=== PATIENT | male | born 1975 | race African-American/Black ===

== ENCOUNTER 2017-03-04 13:34 | Inpatient (IN) ==
--- NOTE | 2017-03-04 14:57 | Emergency Department Note ---
Arrival - Arrival Chief Complaint: Nausea/Vomiting/Diarrhea Stated Complaint: bleeding,abd pain,n/v,weak ED Nursing Triage Note: C/O having nausea and vomiting x 2 days., + diarrhea x 2 days, denies having increase temp ., + chills., generalized abd. cramping Mode of Arrival: Ambulatory Limitations: No Limitations Source: Patient, RN Notes Reviewed Time Seen by Provider: 03/04/17 14:30 - History of Present Illness HPI Narrative: - History of Present Illness 41-year-old black male presents to ED with: MD Complaint: abdominal pain, nausea, vomiting, diarrhea, stools black, vomitus is black Onset (ago): 2 days Fever: no PCP: none PMHx: HTN, patient is noncompliant with medicine, states he does not have any more refills, blood pressure in triage was 141/110 Allergies/Adverse Reactions: Allergies Allergy/AdvReac Type Severity Reaction Status Date / Time No Known Allergies Allergy Verified 03/04/17 13:52 Home Medications: Home Medications Medication Instructions Recorded Confirmed Type No Known Home Medications [No 03/04/17 03/04/17 History Known Home Medications] Review of System - Review of System 12 point system: reviewed and no additional remarkable complaints except as stated - Review of System Constitutional: Present: weakness. Absent: fever Gastrointestinal: Present: as per HPI, abdominal pain, nausea, vomiting, diarrhea, hematemesis, melena Medical,Surgical,& Family Hx - Medical History Cardio: History of: Hypertension (non-compliant with medications) - Social History Smoking Status: Smoker, status unknown Frequency of Alcohol Use: Occasionally Type of Drug Use: None Exam Physical Examination: - General General appearance: alert, in no apparent distress - HEENT Present: atraumatic, normocephalic, normal inspection, PERRL, EOMI, mucous membranes moist - Neck Neck exam: Present: normal inspection, full ROM - Respiratory Respiratory exam: Present: normal lung sounds bilaterally - Cardiovascular Cardiovascular exam: Present: regular rate, normal rhythm, normal heart sounds - Abdominal Exam Abdominal exam: Present: soft, tenderness: Yes, generalized and right lower quadrant, mild, normal bowel sounds. Absent: distention, guarding, trauma, psoas sign, heel tap sign, Caal's sign, mass - Rectal Exam Rectal exam: Present: Dark black stool present, Hemoccult positive - Neurological Exam Neurological exam: Present: alert, oriented X3, no neuorosensory deficits - Psychiatric Psychiatric exam: Present: normal affect, normal mood - Skin Skin exam: Present: warm, dry, intact Vital Signs: Vital Signs Temperature 98.1 F 03/04/17 17:32 Pulse Rate 89 03/04/17 17:32 Respiratory Rate 18 03/04/17 17:32 Blood Pressure 144/83 03/04/17 17:32 O2 Sat by Pulse Oximetry 100 03/04/17 17:32 Course - Consultations Time: 16:00 (Hospitalist service notified of pt presence and status. ) Time: 16:10 (Hospitalist service here to evaluate patient.) Procedures - Stool Hemoccult Procedural Steps Taken: stool placed in appropriate test area, developer placed on stool and control areas, controls appropriately positive and negative Hemoccult result: positive - Smoking Cessation Time Spent Discussing Smoking Cessation w/Patient (Minutes): 00:05 Patient Acknowledges Need for Cessation: Yes Results - Labs CBC & BMP: 03/04/17 15:20 03/04/17 14:53 Lab Results: I have reviewed the patients labs Labs: Laboratory Tests 03/04/17 14:53 INR 1.1 PT Patient/Control Mix 11.6 Laboratory Tests 03/04/17 Unknown Urine Color Yellow Urine Appearance Clear Urine pH 6.0 Ur Specific [place] 1.021 Urine Protein Negative Urine Glucose (UA) Negative Urine Ketones Negative Urine Blood Negative Urine Nitrate Negative Urine Bilirubin Negative Urine Urobilinogen < 2.0 H Urine Leukocytes Negative Urine WBC 2 Ur Squamous Epith Cells Occasional Ur Culture Indicated? Not indicated - Diagnostic Findings Procedure: Abdominal x-ray: report reviewed by me (Negative bowel gas pattern) Disposition Clinical Impression: Gastroenteritis, GI bleed, Renal insufficiency Case discussed with: patient Disposition: Still a Patient Time of Disposition: 16:15
[2017-03-04] MEDS ORDERED: SODIUM CHLORIDE 0.9% 1,000 ML IV STA (14:59)
[2017-03-04] MEDS ORDERED: ONDANSETRON 4 MG/2 ML VIAL IV STA (14:59)
[2017-03-04] MEDS ORDERED: PANTOPRAZOLE 40 MG VIAL IV STA (15:01)
[2017-03-04] MEDS ORDERED: PANTOPRAZOLE 40 MG VIAL IV ONE (15:12)
[2017-03-04] MEDS ORDERED: ONDANSETRON 4 MG/2 ML VIAL ONE (15:12)
--- NOTE | 2017-03-04 15:20 | EKG Report ---
Stationary ECG Study [facility] Test Date: 03/04/2017 3:17:38 PM Pat Name: EDINSON SQUIRES Department: Room: Gender: M Water Proofer: JESSE : 1975 Requested by: Rebeka Santana Order Number: [id number] Reading MD: JULIANNE GARBER Intervals [place] Rate: 80 P: 65 NC: 141 QRS: 56 QRSD: 90 T: -71 QT: 393 QTc: 428 Interpretive Statements SINUS RHYTHM MODERATE T-WAVE ABNORMALITY, CONSIDER INFEROLATERAL ISCHEMIA Electronically Signed On 03-06-17 07:10:03 CDT by JULIANNE GARBER [email or web address]
[2017-03-04 15:25] LABS: INR 1.1; PT Patient Result 11.6 SECS
[2017-03-04 15:26] LABS: Basophils # 0.1 10*3/uL (0.0-0.2); Basophils % 0.7 % (0.0-0.8); Eosinophils # 0.1 10*3/uL (0.0-0.87); Eosinophils % 0.5 % (0.00-10.9); Hematocrit 40.7 VOL% (42.0-52.0); Hemoglobin 13.9 GM/DL (14.0-18.0); Immature Granulocytes % 0.5 %; Immature Granulocytes Absolute 0.07 #; Lymphocytes # 3.5 10*3/uL (1.4-4.0); Mean Corpuscular HGB Conc 34.2 GM/DL (32-36); Mean Corpuscular Hemoglobin 28 PG (27-34); Mean Corpuscular Volume 82.1 FL (87-102); Mean Platelet Volume 10.9 FL (9.6-12.0); Monocytes # 1.4 10*3/uL (0.11-0.8); Monocytes % 10.6 % (1.7-12.7); NRBC # 0.02 10*3/uL; Neutrophils # 7.9 10*3/uL (1.4-7.4); Neutrophils % 60.7 % (38.7-73.9); Platelet Count 106 T/CUMM (130-400); Red Blood Count 4.96 MC/CUMM (3.8-5.5); White Blood Count 12.9 T/CUMM (4-12)
[2017-03-04 15:33] LABS: Albumin 4.4 G/DL (3.4-5.0); Bilirubin,Total 1.3 MG/DL (0.2-1.0); Calcium 9.7 MG/DL (8.5-10.1); Osmolality,Calculated 274.2 MOS/KG (273-304); Potassium 3.7 MMOL/L (3.5-5.1); Total Protein 7.9 G/DL (6.4-8.3)
--- NOTE | 2017-03-04 15:45 | XRay Report ---
XR abdomen 2V Indication: Nausea, vomiting and diarrhea. Abdomen 3 views: No small bowel dilatation. Normal amount of stool and gas projects over the colon, without dilatation. No evidence of free air. No abnormal calcifications or masses. Impression: Negative bowel gas pattern. PROCEDURE INTERPRETED AT [facility] DEPARTMENT OF RADIOLOGY Final Report Signed by: Abdulkadir Ambriz M.D.
[2017-03-04] MEDS ORDERED: hydrALAZINE 20 MG/1 ML VIAL IV STA (16:14)
[2017-03-04] MEDS ORDERED: hydrALAZINE 20 MG/1 ML VIAL ONE (16:18)
[2017-03-04] MEDS ORDERED: diphenhydrAMINE CAP 25 MG CAPSULE PO PRN (16:37)
[2017-03-04] MEDS ORDERED: ACETAMINOPHEN 325 MG TABLET PO PRN ×2 (16:37)
[2017-03-04] MEDS ORDERED: guaiFENesin/DM ER 600-30 MG TABLET PO PRN (16:37)
[2017-03-04] MEDS ORDERED: NICOTINE 21 MG/24 HR PATCH TRANSDERM PRN (16:37)
[2017-03-04] MEDS ORDERED: PROMETHAZINE 25 MG/1 ML VIAL IM PRN (16:37)
[2017-03-04] MEDS ORDERED: MORPHINE 2 MG/1 ML SYRINGE IV PRN (16:37)
[2017-03-04] MEDS ORDERED: ONDANSETRON 4 MG/2 ML VIAL IV PRN (16:37)
--- NOTE | 2017-03-04 16:54 | Hospitalist History & Physical ---
Assessment and Plan - Time spent with patient Time spent with patient: Greater than 30 minutes (1) GI bleed Status: Acute Assessment and plan: Mr. Hamilton is a very pleasant 41-year-old -Malaysian male with history of noncompliance with his medicines for hypertension and hyperlipidemia admitted by the hospitalist service with GI bleeding and hypertensive urgency. Patient also has an abnormal EKG with T-wave inversion and possible anterolateral and inferior ischemia. His troponins are pending at this time. Dr. Lerner has seen and examined patient and further recommendations to follow. GI bleed--patient has a 2 day history of black tarry stools and vomit. Patient' s H&H is stable at this time. He is anemic but not profoundly. Will consult Dr. Riggs from GI for evaluation, start Protonix twice daily, IV fluids, serial H&H's, and keep him n.p.o. due to his nausea and vomiting for now. Hypertensive urgency--patient used to take lisinopril a while ago. We will go ahead and start some Norvasc 5 mg p.o. daily due to his hypotension and tachycardia. Have also written for some Apresoline IV as needed. Hyperlipidemia--patient states he was diagnosed with high cholesterol along time ago and never took his medicine. He does have xanthelasma on bilateral eyelids so we will check a lipid profile. Renal insufficiency/dehydration--patient has elevated BUN and creatinine and this is most likely due to dehydration from his vomiting and diarrhea. Patient is being rehydrated and will recheck labs in the morning. Abnormal EKG--patient's EKG has T-wave abnormality with possible anterolateral and inferior ischemia. His troponins are pending. Patient does not complain of chest pain or shortness of breath. Patient is a high risk due to his noncompliance with hypertensive and hyperlipidemia medications. He is also a heavy smoker as well. Consult cardiology for evaluation. Will also get serial EKGs and troponins. Anemia--this is not profound. Will get serial H&H's to check for further bleeding. Leukocytosis--this is most likely an effect of his current illness. We will repeat some labs in the morning. No signs of any infection so no need for antibiotics at this time. Current Visit: Yes (2) Hypertensive urgency Status: Acute Current Visit: Yes (3) Abnormal EKG Status: Acute Current Visit: Yes (4) Renal insufficiency Status: Acute Current Visit: Yes (5) Dehydration Status: Acute Current Visit: Yes (6) Anemia Status: Acute Current Visit: Yes (7) Leukocytosis Status: Acute Current Visit: Yes History of Present Illness Chief complaint: Nausea, vomiting, diarrhea History of present illness: Mr. Hamilton is a 41 year old -Malaysian male with history of hypertension and hyperlipidemia noncompliant with his medicines presenting to the ED with a 2 day history of nausea, vomiting, and diarrhea. Patient states he ate a hamburger from [facility] on and he has been nauseated and had vomiting and diarrhea since then. Patient states his vomit and diarrhea are both black and tarry. The last time he vomited or had diarrhea was this morning. Patient denies headache or dizziness, chest pain or shortness of breath, constipation, or lower extremity edema. But he does have some right lower quadrant abdominal pain to palpation. Patient states he has been diagnosed with high cholesterol in the past and hypertension but he ran out of medicines approximately 2 or 3 months ago and he has not gotten them refilled. Patient states he is new to [place] has not found a family physician yet. He smokes 3-4 blackened hands a day and he occasionally smokes and drinks alcohol. He is afebrile, tachycardic at 106, and hypertensive at 177/114. CBC shows a mildly elevated white count of 12.9 with a stable H&H of 13.9/40.7, platelets are low at 106. Patient's creatinine is 1.4 and his total bilirubin is 1.3. His EKG is showing some moderate T-wave abnormality with some anterolateral and inferior ischemia. Troponins are pending. After discussion with Lizbeth Mcnamara NP in the ED and Dr. Lerner the hospitalist, it was agreed patient would be admitted for further evaluation and treatment Home Medications Medication Instructions Recorded Confirmed Type No Known Home Medications [No 03/04/17 03/04/17 History Known Home Medications] Allergies Allergy/AdvReac Type Severity Reaction Status Date / Time No Known Allergies Allergy Verified 03/04/17 13:52 Medical,Surgical,& Family Hx - Medical History Cardio: History of: Hypertension (non-compliant with medications) Endocrine: History of: Dyslipidemia - Surgical History Cardiac Surgeries: Patient Denies: Cardiac Catheterization Abdominal Surgeries: Patient denies: Colonoscopy Orthopedic Surgeries: Patient denies;: Orthopedic Surgery - Family History Family History: Reports;: Family Heart Disease - Social History Smoking Status: Heavy tobacco smoker Have you smoked in the last 12 months: Yes Frequency of Alcohol Use: Occasionally Type of Drug Use: Marijuana Marital Status: Single Lives With:: Alone Functional capacity: independent ambulation Review of systems: A complete 10 system review of systems was obtained and pertinent positives and negatives per HPI Exam - Constitutional Vitals: Period Temp Pulse Resp BP Sys/Boss Pulse Ox Last 24 Hr 98.8 F-98.8 F 87-106 20-20 141-177/110-114 100 Exam: Constitutional System: No distress. No tremulousness. Head: Normocephalic, atraumatic. Ears, Nose and Throat System: No evidence of Otitis or Mastoiditis. No epistaxis or discharge Eyes System: Pupils equal, round, and reactive. Extraocular muscles intact. Xanthelasma to bilateral eyelids Neck: Supple, without adenopathy, No jugular venous distention. No thyromegaly, neck mass, or prior surgery apparent. Respiratory System: Chest clear to auscultation. Cardiovascular System: Heart with tachycardic rate and rhythm. No murmur. GI System: Abdomen soft, tender to right lower quadrant. Normo active bowel sounds present. Musculoskeletal System: limbs with no pedal edema. Full distal pulses. Neurological System: No discernable sensory deficit. No aphasia Psychiatric System: Conversation is rational Results - Labs CBC & BMP: 03/04/17 15:20 03/04/17 14:53 Lab Results: I have reviewed the past 24 hour labs - EKG EKG shows: tachycardia - Impressions Moderate T-wave abnormality with possible anterolateral and inferior ischemia - Diagnostic Findings Procedure: KUB x-ray: report reviewed by me (Negative bowel gas pattern)
[2017-03-04] MEDS ORDERED: hydrALAZINE 20 MG/1 ML VIAL IV PRN (17:31)
[2017-03-04 17:35] LABS: Apearance,Urine CLEAR (Clear); Bilirubin,Urine Negative (Negative); Blood, Urine Negative (Negative); Glucose,Urine (UA) Negative (Negative); Ketones,Urine Negative (Negative); Nitrite,Urine Negative (Negative); Protein,Urine Negative; Squamous Epithelial Cell,Urine Occasional /HPF (0-10); Urine Color Yellow (Yellow); Urine Specific Gravity 1.021 (1.001-1.035); Urine Urobilinogen < 2.0 EU/DL (0.2-1.0); WBC,Urine 2 /HPF (0-6)
[2017-03-04 17:47] LABS: Troponin I Only 0.033 NG/ML (0.00-0.045)
[2017-03-04] MEDS: SODIUM CHLORIDE 0.9% 1,000 ML IV SCH (18:23)
[2017-03-04] MEDS: amLODIPine 5 MG TABLET PO SCH (18:24)
[2017-03-04] MEDS: PANTOPRAZOLE 40 MG VIAL IV SCH (21:06)
[2017-03-05 01:44] LABS: Hematocrit 34.7 VOL% (42.0-52.0); Hemoglobin 11.6 GM/DL (14.0-18.0)
[2017-03-05 01:45] LABS: Basophils % 0.4 % (0.0-0.8); Eosinophils # 0.1 10*3/uL (0.0-0.87); Eosinophils % 0.5 % (0.00-10.9); Hematocrit 35.1 VOL% (42.0-52.0); Hemoglobin 11.7 GM/DL (14.0-18.0); Immature Granulocytes % 0.3 %; Immature Granulocytes Absolute 0.03 #; Lymphocytes # 3.4 10*3/uL (1.4-4.0); Lymphocytes % 33.4 % (21.2-54.2); Mean Corpuscular HGB Conc 33.3 GM/DL (32-36); Mean Corpuscular Hemoglobin 28 PG (27-34); Mean Corpuscular Volume 83.4 FL (87-102); Mean Platelet Volume 9.7 FL (9.6-12.0); Monocytes # 1.2 10*3/uL (0.11-0.8); Monocytes % 11.7 % (1.7-12.7); Neutrophils # 5.4 10*3/uL (1.4-7.4); Neutrophils % 53.7 % (38.7-73.9); Platelet Count 251 T/CUMM (130-400); Red Blood Count 4.21 MC/CUMM (3.8-5.5); Red Cell Distribution Width 12.9 % (9.3-17.3)
[2017-03-05] MEDS: SODIUM CHLORIDE 0.9% 1,000 ML IV SCH ×3 (02:07→17:02)
[2017-03-05 02:12] LABS: Risk Ratio 4.38
[2017-03-05 02:15] LABS: Troponin I Only 0.041 NG/ML (0.00-0.045)
[2017-03-05 02:18] LABS: Albumin 3.5 G/DL (3.4-5.0); Bilirubin,Total 1.8 MG/DL (0.2-1.0); Calcium 8.4 MG/DL (8.5-10.1); Osmolality,Calculated 276.7 MOS/KG (273-304); Potassium 4.4 MMOL/L (3.5-5.1); Thyroid Stimulating Hormone 1.09 uIU/ml (0.358-3.74); Total Protein 6.2 G/DL (6.4-8.3)
--- NOTE | 2017-03-05 07:54 | Gastrointestinal Progress Note ---
Gastroenterology - PN: Subj Interval history: Who has a history of hypertension hyperlipidemia who presents with upper GI bleeding and noncompliance with his home medications. 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 Patient had melena yesterday and it was this that alerted him that he needed to come to the emergency room for evaluation. His hematocrit is dropped from 40.7 to 35.1% over the last several hours. His white blood cell count initially was 12.9 and this is also come down to 10.0. When he did not tell the hospitalist was that this man has had severe reflux that he has been borderline controlling with daily Zantac for the last 5 years. He also has some lower esophageal dysphagia with solids hanging with some frequency. He has had some fevers and chills earlier in his course but these have regressed. He has never had upper endoscopy. There is no family history of colon cancer polyps that he knows of. He is not really having any abdominal pain per se. He does not tend have diarrhea or constipation at baseline. Exam (Progress Note) - Constitutional Vitals: Period Temp Pulse Resp BP Sys/Boss Pulse Ox Last 24 Hr 97.9 F-98.8 F 86-106 16-20 123-177/60-114 94-100 Results - Labs CBC & BMP: 03/05/17 01:30 03/05/17 01:30
--- NOTE | 2017-03-05 08:03 | Gastrointestinal Consult Note ---
Assessment and Plan (1) Pharyngoesophageal dysphagia Status: Acute Assessment and plan: This patient has had problems with reflux for the last 5 years and has developed some dysphasia at the base of his esophagus. There is likely a ring here. There may have been a Katie-Rodriguez tear in association with his recent nausea and vomiting. We will plan on doing upper endoscopy along with dilation as appropriate. Current Visit: Yes (2) Coffee ground emesis Status: Acute Assessment and plan: This appears to have stopped at this point. Patient has dropped his hematocrit from 40% down to 35%. Continue evaluation off of anticoagulation until upper endoscopy tomorrow. This will occur sometime between 7:00 and 9:00 in the morning. The patient has been advised of potential risks associated with endoscopy which include but are not limited to: Bleeding, infection, perforation , cardiac and pulmonary compromise. Current Visit: Yes (3) Gastrointestinal hemorrhage with melena Status: Acute Assessment and plan: I suspect that this may be due to the nausea and vomiting the patient had earlier with his food poisoning inducing either Katie-Rodriguez or worsening his underlying reflux symptoms, resulting in erosive esophagitis that later bled. 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 coli 0157:H7). Current Visit: Yes (4) Chronic GERD Status: Acute Assessment and plan: Patient states that he has had reflux for over 5 years and that sometimes this is quite severe and requires daily treatment. He has used nothing besides over- the-counter Zantac for this, and I believe we can find something a great deal stronger to suppress his symptoms--he is already feeling a great deal better. Current Visit: Yes (5) Food poisoning Status: Acute Assessment and plan: Symptom onset occurred after eating a hamburger at [employer] and the patient believes he may have developed food poisoning as a result. Is certainly possible given the time course. I believe the acid reflux and possibly esophagitis and the patient has was exacerbated by the vomiting resulting in either Katie-Rodriguez tear or worsening esophagitis with upper GI bleeding. Stool studies are pending, but due to lack of oral intake the patient has not had any bowel movements yet. Current Visit: Yes History of Present Illness Chief complaint: Hematemesis, melena, 5% drop in hematocrit, dysphagia/GERD History of present illness: Mr. Hamilton is a 41 year old male who has a history of hypertension hyperlipidemia who presents with upper GI bleeding and noncompliance with his home medications. 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 Patient had melena yesterday and it was this that alerted him that he needed to come to the emergency room for evaluation. His hematocrit is dropped from 40.7 to 35.1% over the last several hours. His white blood cell count initially was 12.9 and this is also come down to 10.0. When he did not tell the hospitalist was that this man has had severe reflux that he has been borderline controlling with daily Zantac for the last 5 years. He also has some lower esophageal dysphagia with solids hanging with some frequency. He has had some fevers and chills earlier in his course but these have regressed. He has never had upper endoscopy. There is no family history of colon cancer polyps that he knows of. He is not really having any abdominal pain per se. He does not tend have diarrhea or constipation at baseline. Home Medications Medication Instructions Recorded Confirmed Type No Known Home Medications [No 03/04/17 03/04/17 History Known Home Medications] Allergies Allergy/AdvReac Type Severity Reaction Status Date / Time No Known Allergies Allergy Verified 03/04/17 13:52 Medical,Surgical,& Family Hx - Medical History Cardio: History of: Hypertension (non-compliant with medications) Endocrine: History of: Dyslipidemia - Surgical History Cardiac Surgeries: Patient Denies: Cardiac Catheterization Abdominal Surgeries: Patient denies: Colonoscopy Orthopedic Surgeries: Patient denies;: Orthopedic Surgery - Family History Family History: Reports;: Family Heart Disease - Social History Smoking Status: Smoker, status unknown Frequency of Alcohol Use: Occasionally Type of Drug Use: None Review of systems: Constitutional: Admits to recent fever, chills, nausea, and vomiting Eyes: Denies dry eyes, and scleral icterus HENT: Denies headaches Cardiovascular: He does have some acute chest pain but no claudication Respiratory: Denies shortness of breath, wheezing, and difficulty breathing, denies cough Gastrointestinal: As noted in the HPI Genitourinary: Denies dysuria and hematuria Neurologic: Denies vision loss, and loss of sensation Musculoskeletal: Denies joint swelling, joint stiffness, and muscular weakness Psychiatric: Denies depression and mesfin symptoms Heme-Lymph: Denies easy bruising, lymph node enlargement or tenderness, night sweats, excessive bleeding Allergies-immunologic: Denies pruritus and rhinorrhea Exam - Constitutional Vitals: Period Temp Pulse Resp BP Sys/Boss Pulse Ox Last 24 Hr 97.9 F-98.8 F 86-106 16-20 123-177/60-114 94-100 General appearance: no acute distress - Head Head exam: Present: normocephalic - Eye Eye exam: Present: EOMI - Respiratory Respiratory exam: Present: clear to auscultation bilaterally. Absent: rhonchi, stridor, wheezes - Cardiovascular Cardiovascular exam: Present: regular rate and rhythm - GI/Abdominal GI/Abdominal exam: Present: normal bowel sounds, soft, other (Rectum showed small internal hemorrhoids good tone stool is present chestnut brown and grossly guaiac positive). Absent: distended, guarding, tenderness - Extremities Exam Extremities exam: Absent: edema - Neurological Exam Neurological exam: Present: alert, oriented X3, CN II-XII intact. Absent: motor sensory deficit - Psychiatric Psychiatric exam: Present: normal affect, normal mood - Skin Skin exam: Present: warm Results - Labs CBC & BMP: 03/05/17 01:30 03/05/17 01:30 Quality Measures - VTE Contraindication to Pharmacological VTE Prophylaxis: High Risk of Bleeding
--- NOTE | 2017-03-05 08:10 | EKG Report ---
Stationary ECG Study [facility] Test Date: 03/05/2017 7:52:51 AM Pat Name: EDINSON SQUIRES Department: Room: 292 Gender: M Spd Tech: ED : 1975 Requested by: Nydia Macias Order Number: [id number] Reading MD: JULIANNE GARBER Intervals [place] Rate: 74 P: 67 MD: 134 QRS: 63 QRSD: 93 T: -50 QT: 390 QTc: 417 Interpretive Statements SINUS RHYTHM WITH SINUS ARRHYTHMIA ST DEVIATION AND MODERATE T-WAVE ABNORMALITY, CONSIDER INFEROLATERAL ISCHEMIA Electronically Signed On 03-06-17 07:14:43 CDT by JULIANNE GARBER [email or web address]
--- NOTE | 2017-03-05 08:27 | Cardiology Consult Note ---
Assessment and Plan - Time spent with patient Time spent with patient: Greater than 30 minutes (1) Left ventricular hypertrophy by electrocardiogram Status: Acute Assessment and plan: His ECG appears to be LVH with strain. Certainly the patient ST-T abnormalities are concerning but with his LVH and the fact he has no symptomatology no further evaluation is indicated at this time. He needs his blood pressure managed which is doing well now on medication. I do not think at this time further evaluation is indicated. Please please call us if we can be further service. Current Visit: Yes (2) GI bleed Status: Acute Assessment and plan: Acute GI bleed being evaluated by GI medicine. Current Visit: Yes (3) Coffee ground emesis Status: Acute Assessment and plan: Secondary GI bleed. Has GERD by history. Current Visit: Yes (4) Food poisoning Status: Acute Assessment and plan: Recently apparently had a bad burger Current Visit: Yes History of Present Illness - Data of Consult Patient: new to practice Consult date: 03/05/17 Requesting Physician: Axel Lerner - Consult Narrative Reason for consult: Abnormal ECG History of present illness: Mr. Hamilton is a 41 year old male who is admitted with nausea vomiting and what appears to be some GI bleed. He has had no gross bright red blood. He has a history of GERD and takes [id number] Zantac. He recently had been exposed to apparently a bad burger at [facility]. After that he began having nausea vomiting some diarrhea. We are asked see the patient because of abnormal ECG that appears to be sinus rhythm with left ventricular hypertrophy with strain. The patient denies any chest pain. He exercises including running and weightlifting without any symptomatology. He has blood pressure/hypertension for which he was supposed to be on medication but has not taken this. His blood pressure on admission 177/114. He is now on antihypertensive. He also states he has been told his cholesterols were elevated. He has no prior history of cardiac disease or symptomatology is noted. His lab work reveals normal troponins with elevated CPKs and troponins consistent with muscle skeletal or other noncardiac source. He has been creatinine are elevated some. His bilirubin and AST are elevated some as well. At this time no further cardiac evaluation is indicated. His blood pressures already being treated with medication. We will sign off at this time please let us know we can be any further service. CC: Francine Abbasi MD - Home Medications and Allergies Home Medications: Home Medications Medication Instructions Recorded Confirmed Type No Known Home Medications [No 03/04/17 03/04/17 History Known Home Medications] Allergies/Adverse Reactions: Allergies Allergy/AdvReac Type Severity Reaction Status Date / Time No Known Allergies Allergy Verified 03/04/17 13:52 Review of systems: Constitutional: Denies anorexia, chills, fatigue, fever, frequent falls, night sweats, weight gain, weight loss Eyes: Denies visual changes or loss of vision Ears: Denies decreased hearing, vertigo Nose, mouth and throat: Denies dysphagia, epistaxis, headaches, neck pain, tongue swelling, Neck: Denies thyromegaly or masses. No stiffness. Cardiovascular: as per HPI Respiratory: Denies cough, dyspnea, hemoptysis, dyspnea on exertion, wheezing, snoring Gastrointestinal: See history present illness. Admitted with nausea vomiting diarrhea with what sounds to be some GI bleed. Has a history of GERD. Previously for history of present illness denies abdominal pain, constipation, dyspepsia, dysphagia, hematemesis, hematochezia, melena, nausea, vomiting Genitourinary: Denies dysuria, hematuria, nocturia Musculoskeletal: Denies arthralgias, joint swelling, muscle weakness, myalgias Neurological: denies abnormal gait, abnormal speech, confusion, convulsions, frequent falls, headaches, memory loss, syncope Psychiatric: Denies anxiety, confusion, depression Endocrine: Denies cold intolerance, fatigue, heat intolerance Hematologic/Lymphatic: Denies easy bleeding, easy bruising Dermatologic: Denies Rash, itching, shingles Medical,Surgical,& Family Hx - Medical History Cardio: History of: Hypertension (non-compliant with medications) Endocrine: History of: Dyslipidemia Gastrointestinal: History of: GI Problems (See history of present illness.) - Surgical History Cardiac Surgeries: Patient Denies: Cardiac Catheterization Abdominal Surgeries: Patient denies: Colonoscopy Orthopedic Surgeries: Patient denies;: Orthopedic Surgery - Family History Family History: Reports;: Family Heart Disease (No immediate family history of heart disease.) - Social History Smoking Status: Never smoker Frequency of Alcohol Use: Occasionally Type of Drug Use: Marijuana Physical Examination Vital Signs Temp Pulse Resp BP Pulse Ox 98.8 F 106 H 20 141/110 100 03/04/17 13:49 03/04/17 13:49 03/04/17 13:49 03/04/17 13:49 03/04/17 13:49 Other: General appearance: normal weight, no acute distress Head exam: normal inspection, atraumatic Eye exam: Pupils are equal and reactive. EOMI. There is no trauma. Ear exam: Anatomically normal. Normal auditory acuity to conversation. Oral exam: No significant oral lesions. Neck exam: normal inspection no JVD. No carotid bruit. Trachea is in midline. Respiratory exam: clear to auscultation bilaterally posteriorly and anteriorly with good air movement. No rales, rhonchi or wheezes. Cardiovascular exam: regular rate and rhythm, no murmur or gallop or rub. No precordial lift. No bruits over the major arteries. Chest wall/torso: Anatomically normal. No tenderness, deformity Peripheral Pulses: 2+ throughout. GI/Abdominal exam: normal bowel sounds, soft and nontender, no abdominal bruits or pulsatile masses. He has a little minimal direct tenderness from muscle soreness from nausea vomiting. Musculoskeletal/Extremities exam: normal inspection without edema or cyanosis. No deformities or trauma. Neurological exam: alert, oriented X3. There is no gross neurologic deficits. Psychiatric exam: normal affect, normal mood. Cognitive function is grossly intact. Skin exam: normal color, warm. No rashes or other skin lesions. Result/EKG - Labs CBC & BMP: 03/05/17 01:30 03/05/17 01:30 Lab Results: I have reviewed the past 24 hour labs Labs: Laboratory Results - last 24 hr 03/04/17 03/04/17 03/04/17 14:53 14:53 14:53 WBC RBC Hgb Hct MCV MCH MCHC RDW Plt Count MPV Neut % (Auto) Lymph % (Auto) Starke % (Auto) Eos % (Auto) Baso % (Auto) Neut # (Auto) Lymph # (Auto) Starke # (Auto) Eos # (Auto) Baso # (Auto) Immature Gran % Nucleated RBC % Immature Gran # Nucleated RBCs # INR 1.1 PT Patient/Control Mix 11.6 Circ Anticoag PTT 25.6 Sodium 134 L Potassium 3.7 Chloride 95 L Carbon Dioxide 32 Anion Gap 10.7 BUN 33 H Creatinine 1.40 H GFR Calculation 89 BUN/Creatinine Ratio 23.00 H Glucose 97 Calculated Osmolality 274.2 Calcium 9.7 Total Bilirubin 1.30 H AST 54 H ALT 50 Alkaline Phosphatase 69 Total Creatine Kinase CK-MB (CK-2) Troponin I Total Protein 7.9 Albumin 4.4 Globulin 3.5 Albumin/Globulin Ratio 1.2 Triglycerides Cholesterol LDL Cholesterol VLDL Cholesterol HDL Cholesterol Heart Disease Risk Ratio TSH 3rd Generation Urine Color Urine Appearance Urine pH Ur Specific Lole[place] Urine Protein Urine Glucose (UA) Urine Ketones Urine Blood Urine Nitrate Urine Bilirubin Urine Urobilinogen Urine Leukocytes Urine WBC Ur Squamous Epith Cells Ur Culture Indicated? Blood Type Antibody Screen 03/04/17 03/04/17 03/04/17 14:53 15:03 15:20 WBC 12.9 H RBC 4.96 Hgb 13.9 L Hct 40.7 L MCV 82.1 L MCH 28 MCHC 34.2 RDW 13.0 Plt Count 106 L MPV 10.9 Neut % (Auto) 60.7 Lymph % (Auto) 27.0 Starke % (Auto) 10.6 Eos % (Auto) 0.5 Baso % (Auto) 0.7 Neut # (Auto) 7.9 H Lymph # (Auto) 3.5 Starke # (Auto) 1.4 H Eos # (Auto) 0.1 Baso # (Auto) 0.1 Immature Gran % 0.5 Nucleated RBC % 0.2 Immature Gran # 0.07 Nucleated RBCs # 0.02 INR PT Patient/Control Mix Circ Anticoag PTT Sodium Potassium Chloride Carbon Dioxide Anion Gap BUN Creatinine GFR Calculation BUN/Creatinine Ratio Glucose Calculated Osmolality Calcium Total Bilirubin AST ALT Alkaline Phosphatase Total Creatine Kinase 2029 H CK-MB (CK-2) 3.8 H Troponin I 0.033 Total Protein Albumin Globulin Albumin/Globulin Ratio Triglycerides Cholesterol LDL Cholesterol VLDL Cholesterol HDL Cholesterol Heart Disease Risk Ratio TSH 3rd Generation Urine Color Urine Appearance Urine pH Ur Specific Lole[place] Urine Protein Urine Glucose (UA) Urine Ketones Urine Blood Urine Nitrate Urine Bilirubin Urine Urobilinogen Urine Leukocytes Urine WBC Ur Squamous Epith Cells Ur Culture Indicated? Blood Type O POSITIVE Antibody Screen Negative 03/04/17 03/05/17 03/05/17 Unknown 01:30 01:30 WBC RBC Hgb 11.6 L D Hct 34.7 L MCV MCH MCHC RDW Plt Count MPV Neut % (Auto) Lymph % (Auto) Starke % (Auto) Eos % (Auto) Baso % (Auto) Neut # (Auto) Lymph # (Auto) Starke # (Auto) Eos # (Auto) Baso # (Auto) Immature Gran % Nucleated RBC % Immature Gran # Nucleated RBCs # INR PT Patient/Control Mix Circ Anticoag PTT Sodium Potassium Chloride Carbon Dioxide Anion Gap BUN Creatinine GFR Calculation BUN/Creatinine Ratio Glucose Calculated Osmolality Calcium Total Bilirubin AST ALT Alkaline Phosphatase Total Creatine Kinase 1609 H D CK-MB (CK-2) 2.3 Troponin I 0.041 Total Protein Albumin Globulin Albumin/Globulin Ratio Triglycerides Cholesterol LDL Cholesterol VLDL Cholesterol HDL Cholesterol Heart Disease Risk Ratio TSH 3rd Generation Urine Color Yellow Urine Appearance Clear Urine pH 6.0 Ur Specific Lole[place] 1.021 Urine Protein Negative Urine Glucose (UA) Negative Urine Ketones Negative Urine Blood Negative Urine Nitrate Negative Urine Bilirubin Negative Urine Urobilinogen < 2.0 H Urine Leukocytes Negative Urine WBC 2 Ur Squamous Epith Cells Occasional Ur Culture Indicated? Not indicated Blood Type Antibody Screen 03/05/17 03/05/17 03/05/17 01:30 01:30 01:30 WBC 10.0 RBC 4.21 Hgb 11.7 L Hct 35.1 L MCV 83.4 L MCH 28 MCHC 33.3 RDW 12.9 Plt Count 251 D MPV 9.7 Neut % (Auto) 53.7 Lymph % (Auto) 33.4 Starke % (Auto) 11.7 Eos % (Auto) 0.5 Baso % (Auto) 0.4 Neut # (Auto) 5.4 Lymph # (Auto) 3.4 Starke # (Auto) 1.2 H Eos # (Auto) 0.1 Baso # (Auto) 0.0 Immature Gran % 0.3 Nucleated RBC % 0.0 Immature Gran # 0.03 Nucleated RBCs # 0.00 INR PT Patient/Control Mix Circ Anticoag PTT Sodium 138 Potassium 4.4 Chloride 101 Carbon Dioxide 33 H Anion Gap 8.4 BUN 20 H D Creatinine 1.20 GFR Calculation 106 BUN/Creatinine Ratio 16.00 Glucose 85 Calculated Osmolality 276.7 Calcium 8.4 L Total Bilirubin 1.80 H AST 44 H ALT 38 Alkaline Phosphatase 56 Total Creatine Kinase CK-MB (CK-2) Troponin I Total Protein 6.2 L Albumin 3.5 Globulin 2.7 Albumin/Globulin Ratio 1.2 Triglycerides 110 Cholesterol 210 H LDL Cholesterol 144.0 VLDL Cholesterol 22.0 HDL Cholesterol 48 Heart Disease Risk Ratio 4.38 TSH 3rd Generation 1.090 Urine Color Urine Appearance Urine pH Ur Specific L[place] Urine Protein Urine Glucose (UA) Urine Ketones Urine Blood Urine Nitrate Urine Bilirubin Urine Urobilinogen Urine Leukocytes Urine WBC Ur Squamous Epith Cells Ur Culture Indicated? Blood Type Antibody Screen - Impressions Impressions: ECG with LVH and strain pattern. Quality Measures - VTE Contraindication to Pharmacological VTE Prophylaxis: High Risk of Bleeding
[2017-03-05 08:38] LABS: Hematocrit 34.6 VOL% (42.0-52.0); Hemoglobin 11.3 GM/DL (14.0-18.0)
[2017-03-05] MEDS: PANTOPRAZOLE 40 MG VIAL IV SCH ×2 (08:49→20:40)
[2017-03-05] MEDS: amLODIPine 5 MG TABLET PO SCH (08:49)
[2017-03-05 12:10] LABS: Hepatitis A Ab IgM Quant 0.07 Index; Hepatitis A Ab IgM Result Negative (Negative); Hepatitis B Core IgM Quant 0.09 Index; Hepatitis B Core IgM Result Negative (Negative); Hepatitis B Surface Ag Quant < 0.10 Index; Hepatitis B Surface Ag Result Negative (Negative); Hepatitis C Virus Ab Quant < 0.02 Index; Hepatitis C Virus Ab Result Negative (Negative)
--- NOTE | 2017-03-05 13:41 | Hospitalist Progress Note ---
Assessment and Plan - Time spent with patient Time spent with patient: Less than 30 minutes (1) GI bleed Status: Acute Assessment and plan: Mr. Hamilton is a very pleasant 41-year-old -[place] male with history of noncompliance with his medicines for hypertension and hyperlipidemia admitted by the hospitalist service with GI bleeding and hypertensive urgency. Patient also has an abnormal EKG with T-wave inversion and possible anterolateral and inferior ischemia. His troponins are pending at this time. Dr. Lerner has seen and examined patient and further recommendations to follow. GI bleed--patient has a 2 day history of black tarry stools and vomit. Patient' s H&H is stable at this time. He is anemic but not profoundly. Will consult Dr. Riggs from GI for evaluation, start Protonix twice daily, IV fluids, serial H&H's, and keep him n.p.o. due to his nausea and vomiting for now. Hypertensive urgency--patient used to take lisinopril a while ago. We will go ahead and start some Norvasc 5 mg p.o. daily due to his hypotension and tachycardia. Have also written for some Apresoline IV as needed. Hyperlipidemia--patient states he was diagnosed with high cholesterol along time ago and never took his medicine. He does have xanthelasma on bilateral eyelids so we will check a lipid profile. Renal insufficiency/dehydration--patient has elevated BUN and creatinine and this is most likely due to dehydration from his vomiting and diarrhea. Patient is being rehydrated and will recheck labs in the morning. Abnormal EKG--patient's EKG has T-wave abnormality with possible anterolateral and inferior ischemia. His troponins are pending. Patient does not complain of chest pain or shortness of breath. Patient is a high risk due to his noncompliance with hypertensive and hyperlipidemia medications. He is also a heavy smoker as well. Consult cardiology for evaluation. Will also get serial EKGs and troponins. Anemia--this is not profound. Will get serial H&H's to check for further bleeding. Leukocytosis--this is most likely an effect of his current illness. We will repeat some labs in the morning. No signs of any infection so no need for antibiotics at this time. 03/05/2017 patient feels much better this morning and is tolerating a diet. No further signs of GI bleed. GI has seen the patient and is planning on EGD in the morning. He states patient has complained of some dysphagia with a possible Katie-Rodriguez tear due to his nausea and vomiting. Because of possible food poisoning he has ordered stool studies that are still pending. He also wants to increase his acid suppression to suppress his symptoms of GERD. Patient is receiving Protonix in the hospital. Patient's blood pressures have improved slightly to 167/82 and his heart rate is now in the 80s. He was started on 5 mg of Norvasc last night, will add some losartan to his regimen. We will continue to monitor. Patient does have high cholesterol with an elevated LDL. We will hold off on starting lipid-lowering medication due to his elevated LFTs. Have ordered a right upper quadrant ultrasound along with viral hepatitis panel and awaiting results of these. Patient's renal insufficiency/dehydration has resolved with IV fluids. His creatinine is normal this morning. Patient's follow-up EKGs are still showing some T-wave abnormality. Dr. Daily from cardiology has seen and examined the patient. He feels this is LVH with strain due to his chronic elevated blood pressures. He thinks no further evaluation is indicated and has signed off the case. Patient's leukocytosis has resolved. His H&H has dropped to 11.3/34.6. There is no further bleeding. GI is on the case and planning EGD for the morning. Patient's LFTs were mildly elevated with a T bili of 1.3 that has increased to 1.8 today. Have ordered viral hepatitis panel and right upper quadrant ultrasound to evaluate the liver and gallbladder. Dr. Abbasi will see and examined patient and further recommendations to follow. Current Visit: Yes (2) Hypertensive urgency Status: Acute Current Visit: Yes (3) Abnormal EKG Status: Acute Current Visit: Yes (4) Renal insufficiency Status: Acute Current Visit: Yes (5) Dehydration Status: Acute Current Visit: Yes (6) Anemia Status: Acute Current Visit: Yes (7) Leukocytosis Status: Acute Current Visit: Yes Hospitalist: Subjective Interval history: Patient states he feels so much better this morning. He has had no further episodes of vomiting or diarrhea. GI ordered him a breakfast this morning and he ate his whole tray. Exam - Constitutional Vitals: Period Temp Pulse Resp BP Sys/Boss Pulse Ox Last 24 Hr 97.8 F-98.8 F 83-106 16-20 123-177/60-114 94-100 Exam: 41-year-old -[place] male, no acute distress, alert and oriented Chest clear CV regular rate and rhythm Abdomen soft and nontender Extremities no edema Results - Labs CBC & BMP: 03/05/17 08:25 03/05/17 01:30 Lab Results: I have reviewed the past 24 hour labs - EKG EKG results: sinus rhythm - Diagnostic Findings Procedure: Ultrasound: report reviewed by me (Abdominal ultrasound is pending) Quality Measures - VTE Contraindication to Pharmacological VTE Prophylaxis: High Risk of Bleeding
[2017-03-05] MEDS: LOSARTAN 25 MG TABLET PO SCH (13:52)
--- NOTE | 2017-03-05 14:57 | Ultrasound Report ---
US abdomen Indication: Elevated bilirubin. ULTRASOUND ABDOMEN, COMPLETE Comparison: None Findings: Liver: Unremarkable Gallbladder: Unremarkable Common bile duct: 5 mm Aorta: No aneurysm IVC: Patent Spleen: Unremarkable Pancreas: Obscured by bowel gas Right kidney: 9.9 cm length. No mass, cyst, calcification or obstruction Left kidney: 10.0 cm length. No mass, cyst, calcification or obstruction Impression: No acute pathology. PROCEDURE INTERPRETED AT [facility] DEPARTMENT OF RADIOLOGY Final Report Signed by: Abdulkadir Ambriz M.D.
[2017-03-06] MEDS: SODIUM CHLORIDE 0.9% 1,000 ML IV SCH ×2 (01:03→11:49)
[2017-03-06 04:30] LABS: Basophils % 0.4 % (0.0-0.8); Eosinophils # 0.1 10*3/uL (0.0-0.87); Eosinophils % 0.9 % (0.00-10.9); Hemoglobin 10.3 GM/DL (14.0-18.0); Immature Granulocytes % 0.2 %; Immature Granulocytes Absolute 0.02 #; Lymphocytes # 2.8 10*3/uL (1.4-4.0); Lymphocytes % 30.6 % (21.2-54.2); Mean Corpuscular HGB Conc 33.2 GM/DL (32-36); Mean Corpuscular Hemoglobin 28 PG (27-34); Mean Corpuscular Volume 84.2 FL (87-102); Mean Platelet Volume 10.1 FL (9.6-12.0); Monocytes % 10.4 % (1.7-12.7); Neutrophils # 5.2 10*3/uL (1.4-7.4); Neutrophils % 57.5 % (38.7-73.9); Platelet Count 245 T/CUMM (130-400); Red Blood Count 3.68 MC/CUMM (3.8-5.5); Red Cell Distribution Width 12.9 % (9.3-17.3); White Blood Count 9.1 T/CUMM (4-12)
[2017-03-06 05:13] LABS: Troponin I Only 0.018 NG/ML (0.00-0.045)
[2017-03-06 05:14] LABS: Bilirubin,Total 1.1 MG/DL (0.2-1.0); Calcium 8.4 MG/DL (8.5-10.1); Osmolality,Calculated 279.4 MOS/KG (273-304); Potassium 4.4 MMOL/L (3.5-5.1); Total Protein 5.8 G/DL (6.4-8.3)
--- NOTE | 2017-03-06 07:45 | Operative Note ---
Date of procedure: 03/06/17 Pre-op diagnosis: Hematemesis, possible food poisoning, melena Post-op diagnosis: other (This patient had blood loss that was felt secondary to erosive duodenitis. Biopsies were taken in the stomach to rule out Helicobacter pylori. Continued use of Protonix is advised. Small hiatal hernia was noted. Because of the patient's dysphagia a Savary dilation was done to 57 Ethiopian, this was tolerated well--no heme noted or significant resistance required.) Procedure: PROCEDURE: Esophagogastroduodenoscopy (EGD) with cold biopsy for pathology and dilation to 57 Ethiopian by single pass Savary REFERRING PHYSICIAN: Dr. Maximus Portillo MD INDICATIONS: This patient has dysphasia but also recent nausea vomiting with hematemesis and melena after eating a allegedly tainted burger at [employer] the prior H&P was reviewed and interrim changes are as noted: No change from GI consultation yesterday ENDOSCOPIST: Juan C Riggs MD ENDOSCOPE: Olympus Video 100 System upper endoscope ASA CLASS: 2 EXAM: CV: regular rate and rhythm respiratory: Clear without wheezes abdominal: active bowel sounds MEDICATION: Per nursing anesthesia protocol, see their notes PROCEDURE: After discussion of the potential risks and benefits of upper endoscopy, the informed consent was obtained. The patient was then placed in the left lateral decubitus position where sedation was achieved as noted above. Esophageal intubation was performed without difficulty, and the endoscope was advanced through the esophagus, stomach and duodenum. A slow withdrawal was then performed with retroflexion in the stomach for careful inspection of the incisura angularis, fundus and cardia. The scope was then returned to a neutral position and withdrawn through the esophagus. The patient tolerated the procedure well and without complication. BIOPSIES: Gastric antrum/body PHOTOGRAPHS: Obtained FINDINGS: Hypopharynx and Larynx: Normal Esohagoscopy Upper and middle thirds: Normal Lower third normal Esophogastric junctions: Irregular EG junction but no gross evidence of stricturing, Leonardo's, or esophagitis, this area was dilated to 57 Ethiopian by single pass Savary dilator at the end of the case. Gastroscopy: Cardia/Fundus: 1 cm hiatal hernia, no retained fluid in the stomach Body: Very mild patchy gastritis, biopsied Antrum and pylorus very mild patchy gastritis, biopsied, wire advanced into stomach in order to facilitate Savary dilation above at the end of the case. Duodenoscopy: Bulb erosive duodenitis was noted in a patchy nature here Second and third portions: Erosive duodenitis noted IMPRESSION: This patient had blood loss that was felt secondary to erosive duodenitis. Biopsies were taken in the stomach to rule out Helicobacter pylori. Continued use of Protonix is advised. Small hiatal hernia was noted. Because of the patient's dysphagia a Savary dilation was done to 57 Ethiopian, this was tolerated well--no heme noted or significant resistance required. RECOMMENDATIONS: Follow up for biopsy results in 1-2 weeks by phone [phone] Continue anti-gastroesophageal reflux measures (avoid carbonated and acidic beverages, avoid eating within 2 hours of bedtime, avoid tight fitting clothing , and elevate the front bed posts 6 inches prior to sleeping. This patient can be redilated in 6-18 months if this was felt to be helpful Prescription given for the patient in the front of the chart for pantoprazole 40 mg to be taken prior to suppertime #30 refills 11. Follow-up with me in the office as needed. Juan C iRggs MD COPY TO: Dr. Maximus Portillo MD Anesthesia: MAC Surgeon / Physician: Juan C Riggs Estimated blood loss: minimal Specimens: other (Gastric antrum/body) Condition: stable Disposition: post procedure unit (G.I. Suite) Results - Labs CBC & BMP: 03/06/17 03:44 03/06/17 03:44 Discharge Plan - Discharge Medications No Action No Known Home Medications [No Known Home Medications] - Follow Up or Referral - Forms/Instructions
--- NOTE | 2017-03-06 08:05 | Gastrointestinal Progress Note ---
Assessment and Plan (1) Pharyngoesophageal dysphagia Status: Acute Assessment and plan: This patient has had problems with reflux for the last 5 years and has developed some dysphasia at the base of his esophagus. There is likely a ring here. There may have been a Katie-Rodriguez tear in association with his recent nausea and vomiting. We will plan on doing upper endoscopy along with dilation as appropriate. 03/06/17--The findings at endoscopy were as follows: This patient had blood loss that was felt secondary to erosive duodenitis. Biopsies were taken in the stomach to rule out Helicobacter pylori. Continued use of Protonix is advised. Small hiatal hernia was noted. Because of the patient's dysphagia a Savary dilation was done to 57 [place], this was tolerated well--no heme noted or significant resistance required. He can be discharged today in my opinion. The prescription is paperclip to the front of his chart he can be followed up in my clinic as needed in the future, I do not need to see him back on a scheduled basis. I believe most of this was due to the allegedly tainted hamburger. Current Visit: Yes (2) Coffee ground emesis Status: Acute Assessment and plan: This appears to have stopped at this point. Patient has dropped his hematocrit from 40% down to 35%. Continue evaluation off of anticoagulation until upper endoscopy tomorrow. This will occur sometime between 7:00 and 9:00 in the morning. The patient has been advised of potential risks associated with endoscopy which include but are not limited to: Bleeding, infection, perforation , cardiac and pulmonary compromise. 03/06/17--The patient had erosive duodenitis which likely explains his melena. He did not have evidence of a Katie-Rodriguez tear or todd erosions in the stomach. He should do well with the pantoprazole for his underlying reflux symptoms which have been bothering him for years. Current Visit: Yes (3) Gastrointestinal hemorrhage with melena Status: Acute Assessment and plan: I suspect that this may be due to the nausea and vomiting the patient had earlier with his food poisoning inducing either Katie-Rodriguez or worsening his underlying reflux symptoms, resulting in erosive esophagitis that later bled. 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 coli 0157:H7). 03/06/17--No complaints now, advance diet. Current Visit: Yes (4) Chronic GERD Status: Acute Assessment and plan: Patient states that he has had reflux for over 5 years and that sometimes this is quite severe and requires daily treatment. He has used nothing besides over- the-counter Zantac for this, and I believe we can find something a great deal stronger to suppress his symptoms--he is already feeling a great deal better. 03/06/17--See above-- pantoprazole started. Current Visit: Yes (5) Food poisoning Status: Acute Assessment and plan: Symptom onset occurred after eating a hamburger at [employer] and the patient believes he may have developed food poisoning as a result. Is certainly possible given the time course. I believe the acid reflux and possibly esophagitis and the patient has was exacerbated by the vomiting resulting in either Katie-Rodriguez tear or worsening esophagitis with upper GI bleeding. Stool studies are pending, but due to lack of oral intake the patient has not had any bowel movements yet. Current Visit: Yes Gastroenterology - PN: Subj Interval history: No new complaints, the patient is hungry and would like to be discharged. Exam (Progress Note) - Constitutional Vitals: Period Temp Pulse Resp BP Sys/Boss Pulse Ox Last 24 Hr 97.5 F-98.1 F 65-87 10-20 118-167/57-97 93-99 - Head Head exam: Present: normocephalic - Eye Eye exam: Present: EOMI - Respiratory Respiratory exam: Present: clear to auscultation bilaterally - Cardiovascular Cardiovascular exam: Present: regular rate and rhythm - GI/Abdominal GI/Abdominal exam: Present: normal bowel sounds, tenderness (Mild epigastric tenderness), soft. Absent: distended, guarding, rebound - Back Exam Back exam: Present: normal inspection - Neurological Exam Neurological exam: Present: alert, oriented X3 - Psychiatric Psychiatric exam: Present: normal affect, normal mood - Skin Skin exam: Present: warm Results - Labs CBC & BMP: 03/06/17 03:44 03/06/17 03:44
--- NOTE | 2017-03-06 08:08 | Anesthesia Post-Op ---
Anesthesia Post OP - Post Ansesthetic Evaluation Patient seen in post op: Yes Resp: within normal limits CV: within normal limits Mental: within normal limits Temp: within normal limits [id number]: within normal limits Nausea and Vomiting: within normal limits Pain: within normal limits
[2017-03-06] MEDS: PANTOPRAZOLE 40 MG VIAL IV SCH (09:46)
[2017-03-06] MEDS: LOSARTAN 25 MG TABLET PO SCH (09:46)
[2017-03-06] MEDS: amLODIPine 5 MG TABLET PO SCH (09:46)
--- NOTE | 2017-03-06 10:35 | Discharge Summary ---
Hospital Course - Hospital Course Hospital Course: 41-year-old -[place] male with a history of hypertension and hyperlipidemia who has been noncompliant with his medicines presents with nausea vomiting and diarrhea induced to mild food poisoning. Patient was noted to have black tarry stools and coffee-ground emesis. Patient was diagnosed with a GI bleed and Dr. Riggs was consulted. Patient also has a history of reflux and has pharyngeal esophageal dysphagia. EGD today showed erosive esophagitis and biopsies were taken to rule out H. pylori. Patient with noted to have a small hiatal hernia in his esophagus was dilated. Patient will be discharged home on Protonix twice a day to follow with Dr. Riggs in approximately 4 weeks. Patient does not have a primary care doctor we will refer him to nurse practitioner Mirella Sanchez with Dr. Cuevas. - Time spent with patient Time with patient DS: Less than 30 minutes (25 min) Discharge Plan - Discharge Data Disposition: Disch To Home/Self Care Condition at Discharge: Stable Discharge Diet: other (soft gi diet ) Activity: resume usual activities as tolerated Hygiene: no restrictions Weight Bearing at Discharge: full weight bearing Driving: no restrictions - Discharge Medications New amLODIPine [Norvasc] 5 mg PO DAILY #30 tablet Pantoprazole Tab [Protonix Tab] 40 mg PO BID #60 tablet Losartan [Cozaar] 25 mg PO DAILY #30 tablet Atorvastatin [Lipitor] 10 mg PO BEDTIME #30 tablet - Follow Up or Referral Follow Up: Mirella Sanchez [Other] - 1 Week (blood pressure Dr. Cuevas ) Juan C Riggs MD [Physician] - 1 Month - Forms/Instructions Exam - Constitutional Vitals: Period Temp Pulse Resp BP Sys/Boss Pulse Ox Last 24 Hr 97.5 F-98.1 F 58-87 10-22 107-167/57-97 93-100 General appearance: normal weight, no acute distress - Respiratory Respiratory exam: Present: clear to auscultation bilaterally. Absent: rhonchi, wheezes - Cardiovascular Cardiovascular exam: Present: regular rate and rhythm. Absent: systolic murmur - GI/Abdominal GI/Abdominal exam: Present: normal bowel sounds, soft. Absent: tenderness - Extremities Exam Extremities exam: Present: normal inspection, normal capillary refill Discharge Results Procedures and tests throughout hospitalization: Pending Orders 03/05/17 19:44 Occult Blood, Stool Routine Stool Culture Routine Labs on day of discharge: Labs from last 24 hours 03/06/17 03/06/17 03/06/17 03:44 03:44 03:44 WBC 9.1 RBC 3.68 L Hgb 10.3 L Hct 31.0 L MCV 84.2 L MCH 28 MCHC 33.2 RDW 12.9 Plt Count 245 MPV 10.1 Neut % (Auto) 57.5 Lymph % (Auto) 30.6 [place] % (Auto) 10.4 Eos % (Auto) 0.9 Baso % (Auto) 0.4 Neut # (Auto) 5.2 Lymph # (Auto) 2.8 [place] # (Auto) 1.0 H Eos # (Auto) 0.1 Baso # (Auto) 0.0 Immature Gran % 0.2 Nucleated RBC % 0.0 Immature Gran # 0.02 Nucleated RBCs # 0.00 Sodium 140 Potassium 4.4 Chloride 104 Carbon Dioxide 30 Anion Gap 10.4 BUN 17 Creatinine 1.00 GFR Calculation 133 BUN/Creatinine Ratio 17.00 Glucose 81 Calculated Osmolality 279.4 Calcium 8.4 L Total Bilirubin 1.10 H AST 33 ALT 34 Alkaline Phosphatase 51 Total Creatine Kinase 776 H D CK-MB (CK-2) < 1.0 Troponin I 0.018 Total Protein 5.8 L Albumin 3.0 L Globulin 2.8 Albumin/Globulin Ratio 1.0 L Hepatitis A IgM Ab Hep Bs Antigen Hep B Core IgM Ab Hepatitis C Antibody 03/05/17 08:23 WBC RBC Hgb Hct MCV MCH MCHC RDW Plt Count MPV Neut % (Auto) Lymph % (Auto) [place] % (Auto) Eos % (Auto) Baso % (Auto) Neut # (Auto) Lymph # (Auto) [place] # (Auto) Eos # (Auto) Baso # (Auto) Immature Gran % Nucleated RBC % Immature Gran # Nucleated RBCs # Sodium Potassium Chloride Carbon Dioxide Anion Gap BUN Creatinine GFR Calculation BUN/Creatinine Ratio Glucose Calculated Osmolality Calcium Total Bilirubin AST ALT Alkaline Phosphatase Total Creatine Kinase CK-MB (CK-2) Troponin I Total Protein Albumin Globulin Albumin/Globulin Ratio Hepatitis A IgM Ab Negative Hep Bs Antigen Negative Hep B Core IgM Ab Negative Hepatitis C Antibody Negative DS: Provider Date of admission: 03/04/17 16:37 Primary care physician: . No PCP Attending physician on admission: Maximus Portillo MD Consults: 03/04/17 16:37 Consult to Physician [CONS] Routine Comment: GIB Consulting Provider: Juan C Riggs Consulting Provider Notified: Yes When should Consulting Provider be notified: Now Person Notified: Dr Riggs Date Notified: 03/04/17 Time Notified: 17:49 Consult Notification Comment: orders given, will see in am Consult to Physician [CONS] Routine Comment: ekg w ischemia Consulting Provider: Abdulkadir Daily When should Consulting Provider be notified: Now Person Notified: Dr Daily Date Notified: 03/04/17 Time Notified: 17:54 03/05/17 07:52 Consult to Anesthesiology [CONS] Routine Consulting Provider: Reason for Anesthesiology: Pre-op Clearance Discharging clinician: Iliana Pedraza MD
[2017-03-06 11:56] VITALS: BP 136/73
--- NOTE | 2017-03-07 11:23 | Pathology Report from [facility] ---
[facility] ACCESSION # : [id number] PATIENT NAME : Kalyan Squires ORDERING DR : Juan C Riggs MD CLINICAL HX: N/V, hematemesis & melena POST-OP DX: Same SPECIMEN INFO: BROOKE GROSS DESCRIPTION: Received in formalin labeled DANIELA SQUIRES is an aggregate of echevarria mucosal tissue measuring 0.9 x 0.5 cm collectively, submitted in one cassette. DIAGNOSIS FOR KALYAN SQUIRES: BROOKE BIOPSIES: Chronic gastritis, focally active. Special stain for H. pylori POSITIVE. COLLECTED DATE: 03/06/2017 [facility] REPORT DATE: 03/07/2017 ELECTRONICALLY SIGNED BY: Som Adan M.D. 03/07/2017 - 9:05:52 [facility] SERVICESReynaldo
== END 2017-03-06 13:23 | disposition home or self-care (01) | DRG 379 ==
LOC: N.ED 13:34 → SUATTDRO 16:37 → N.EDINP 16:37 → N.TELEN 17:31
PROVIDERS: ADMIT Internal Medicine Infectious Disease; ATTEND Internal Medicine